=== PATIENT | male | born 1945 | race Caucasian/White ===

== ENCOUNTER → 2017-02-09 | Outpatient (CLI) | payer MEDICARE | END | disposition home or self-care (01) | LOC: CFH 07:34 | PROVIDERS: ATTEND Internal Medicine Cardiovascular Disease | DX: I08.3 Combined rheumatic disorders of mitral, aortic and tricuspid valves (principal); I51.7 Cardiomegaly; I72.8 Aneurysm of other specified arteries; Z95.0 Presence of cardiac pacemaker | CPT/HCPCS: 93306 ==

== ENCOUNTER → 2018-01-24 | Outpatient (CLI) | payer MEDICARE | END | disposition home or self-care (01) | LOC: CFH 09:28 | PROVIDERS: ATTEND Internal Medicine Cardiovascular Disease | DX: I35.8 Other nonrheumatic aortic valve disorders (principal); I25.2 Old myocardial infarction; I42.8 Other cardiomyopathies; Z87.891 Personal history of nicotine dependence | CPT/HCPCS: 93306 ==

== ENCOUNTER 2019-04-15 07:45 | Inpatient (IN) | payer MEDICARE ==
[~2019-04-15] VITALS: Ht 167.6 cm; Wt 89.4 kg
[2019-04-15] MEDS ORDERED: SODIUM CHLORIDE FLUSH 10ML SYR IVF ONE (08:00)
[2019-04-15 08:19] LABS: BASOPHILS # (AUTO) 0.05 x10^3/uL (0-0.1); BASOPHILS % (AUTO) 1 % (0-1); EOSINOPHILS # (AUTO) 0.18 x10^3/uL (0-0.4); EOSINOPHILS % (AUTO) 3 % (1-7); LYMPHOCYTES # (AUTO) 1.56 x10^3/uL (1-3.4); LYMPHOCYTES % (AUTO) 23 % (22-44); MD NO; MEAN CORPUSCULAR HEMOGLOBIN 29.8 pg (27.5-34.5); MEAN CORPUSCULAR HGB CONC 31.6 g/dL (33.2-36.2); MEAN CORPUSCULAR VOLUME 94.3 fL (81-97); MEAN PLATELET VOLUME 9.7 fL (7.4-10.4); MONOCYTES # (AUTO) 0.53 x10^3/uL (0.2-0.8); MONOCYTES % (AUTO) 8 % (2-9); NEUTROPHILS # (AUTO) 4.44 x10^3/uL (1.8-6.8); NEUTROPHILS % (AUTO) 66 % (42-75); PLATELET COUNT 190 x10^3/uL (130-400); RED BLOOD COUNT 5.02 x10^6/uL (4.38-5.82); RED CELL DISTRIBUTION WIDTH 14.2 % (9.4-14.8)
[2019-04-15 08:32] LABS: ALANINE AMINOTRANSFERASE 26 U/L (12-78); ALBUMIN 3.8 g/dL (3.4-5.0); ANION GAP 6 mmol/L (5-15); CHLORIDE 109 mmol/L (98-107); CREATININE 1.08 mg/dL (0.7-1.3)
[2019-04-15 08:37] LABS: ALKALINE PHOSPHATASE 87 U/L (45-117); BILIRUBIN,TOTAL 0.6 mg/dL (0.2-1.0); TOTAL PROTEIN 6.8 g/dL (6.4-8.2); TROPONIN I 0.023 ng/mL (0.000-0.045)
[2019-04-15] MEDS ORDERED: ENAL20TA PO (08:43)
[2019-04-15] MEDS ORDERED: ATOR-2 PO (08:43)
[2019-04-15] MEDS ORDERED: CYCL-259 PO (08:43)
[2019-04-15] MEDS ORDERED: ALPR-475 PO (08:43)
[2019-04-15] MEDS ORDERED: CENTRUM SILVER PO (08:43)
[2019-04-15] MEDS ORDERED: DOXA4TAB3 PO (08:43)
[2019-04-15] MEDS ORDERED: FURO-93 PO (08:43)
[2019-04-15] MEDS ORDERED: AMIODARONE 900 MG in DEXTROSE 5% 482 ML IV PRN (09:00)
[2019-04-15] MEDS ORDERED: AMIODARONE 150 MG in DEXTROSE 5% 100 ML IV ONE (09:00)
[2019-04-15] MEDS ORDERED: FILTER 0.22 MICRON IV PRN (09:00)
[2019-04-15 11:56] VITALS: BP 146/86
[2019-04-15] MEDS ORDERED: LABETALOL 5MG/ML, 20ML IVPush PRN (14:00)
[2019-04-15] MEDS ORDERED: POLYETHYLENE GLYCOL 17 GM PACKET PO PRN (14:00)
[2019-04-15] MEDS ORDERED: ONDANSETRON ODT 4 MG PO PRN (14:00)
[2019-04-15] MEDS ORDERED: ONDANSETRON 2MG/ML, 2ML IVPush PRN (14:00)
[2019-04-15 14:09] VITALS: BP 105/66
[2019-04-15 14:45] LABS: FREE T4 (FREE THYROXINE) 1.08 ng/dL (0.76-1.46)
[2019-04-15] MEDS ORDERED: AMIODARONE IN D5W 200 ML IV SCH (15:30)
[2019-04-15] MEDS ORDERED: FILTER 0.22 MICRON IV SCH (15:30)
[2019-04-15] MEDS ORDERED: AMIODARONE 360MG/200ML PREMIX IV PRN (15:30)
[2019-04-15] MEDS: CARVEDILOL 3.125 MG TABLET PO SCH (16:56)
[2019-04-15 18:28] VITALS: BP 120/75
[2019-04-15] MEDS ORDERED: ACETAMINOPHEN 325 MG TABLET ONE (19:22)
[2019-04-15] MEDS ORDERED: ACETAMINOPHEN 325 MG TABLET PO PRN (19:30)
[2019-04-15] MEDS: DOXAZOSIN 2MG TABLET PO SCH (19:58)
[2019-04-15] MEDS: CYCLOBENZAPRINE 10 MG TABLET PO SCH (19:58)
[2019-04-15] MEDS: ATORVASTATIN 40 MG TABLET PO SCH (19:58)
[2019-04-16] VITALS (7 sets, daily range): BP systolic 100–128; BP diastolic 64–82
[2019-04-16 04:42] LABS: BASOPHILS # (AUTO) 0.21 x10^3/uL (0-0.1); BASOPHILS % (AUTO) 2 % (0-1); EOSINOPHILS # (AUTO) 0.27 x10^3/uL (0-0.4); EOSINOPHILS % (AUTO) 3 % (1-7); LYMPHOCYTES # (AUTO) 2.87 x10^3/uL (1-3.4); LYMPHOCYTES % (AUTO) 31 % (22-44); MD NO; MEAN CORPUSCULAR HEMOGLOBIN 30.4 pg (27.5-34.5); MEAN CORPUSCULAR HGB CONC 32.1 g/dL (33.2-36.2); MEAN CORPUSCULAR VOLUME 94.8 fL (81-97); MEAN PLATELET VOLUME 9.9 fL (7.4-10.4); MONOCYTES # (AUTO) 0.77 x10^3/uL (0.2-0.8); MONOCYTES % (AUTO) 8 % (2-9); NEUTROPHILS # (AUTO) 5.09 x10^3/uL (1.8-6.8); NEUTROPHILS % (AUTO) 55 % (42-75); PLATELET COUNT 186 x10^3/uL (130-400); RED BLOOD COUNT 4.61 x10^6/uL (4.38-5.82); RED CELL DISTRIBUTION WIDTH 14.3 % (9.4-14.8)
[2019-04-16 04:50] LABS: ALANINE AMINOTRANSFERASE 22 U/L (12-78); ALBUMIN 3.5 g/dL (3.4-5.0); ANION GAP 7 mmol/L (5-15); CALCIUM 8.8 mg/dL (8.5-10.1); CHLORIDE 108 mmol/L (98-107); CREATININE 0.96 mg/dL (0.7-1.3)
[2019-04-16 05:01] LABS: ALKALINE PHOSPHATASE 77 U/L (45-117); BILIRUBIN,TOTAL 0.8 mg/dL (0.2-1.0); TOTAL PROTEIN 6.2 g/dL (6.4-8.2)
[2019-04-16] MEDS: CARVEDILOL 3.125 MG TABLET PO SCH ×2 (05:51→17:03)
[2019-04-16] MEDS ORDERED: POTASSIUM CHLORIDE 20 MEQ PACKET PO SCH (08:00)
[2019-04-16] MEDS ORDERED: POTASSIUM CHLORIDE 20 MEQ TAB.ER.PRT ONE (08:01)
[2019-04-16] MEDS: SENNA/DOCUSATE TABLET PO SCH (08:04)
[2019-04-16] MEDS: PANTOPRAZOLE 40 MG IV IVPush SCH (08:04)
[2019-04-16] MEDS: CYCLOBENZAPRINE 10 MG TABLET PO SCH ×3 (08:06→21:09)
[2019-04-16] MEDS: ENALAPRIL 20MG TABLET PO SCH (08:07)
[2019-04-16 08:17] LABS: TROPONIN I 0.048 ng/mL (0.000-0.045)
[2019-04-16] MEDS ORDERED: REGADENOSON 0.4 MG/5 ML SYRINGE ONE (08:53)
[2019-04-16] MEDS ORDERED: ENOXAPARIN 40 MG/0.4 ML SQ SCH (12:00)
[2019-04-16] MEDS: FUROSEMIDE 40 MG TABLET PO SCH (12:29)
[2019-04-16] MEDS: AMIODARONE 200 MG TABLET PO SCH ×2 (12:29→21:08)
[2019-04-16] MEDS ORDERED: CARVEDILOL 3.125 MG TABLET PO ONE (13:00)
[2019-04-16] MEDS: ATORVASTATIN 40 MG TABLET PO SCH (21:09)
[2019-04-16] MEDS: DOXAZOSIN 2MG TABLET PO SCH (21:09)
[2019-04-17 00:50] VITALS: BP 101/64
[2019-04-17 05:21] LABS: BASOPHILS # (AUTO) 0.05 x10^3/uL (0-0.1); BASOPHILS % (AUTO) 1 % (0-1); EOSINOPHILS # (AUTO) 0.21 x10^3/uL (0-0.4); EOSINOPHILS % (AUTO) 2 % (1-7); LYMPHOCYTES # (AUTO) 2.36 x10^3/uL (1-3.4); LYMPHOCYTES % (AUTO) 26 % (22-44); MD NO; MEAN CORPUSCULAR HEMOGLOBIN 30.5 pg (27.5-34.5); MEAN CORPUSCULAR HGB CONC 32.6 g/dL (33.2-36.2); MEAN CORPUSCULAR VOLUME 93.5 fL (81-97); MEAN PLATELET VOLUME 10.1 fL (7.4-10.4); MONOCYTES # (AUTO) 0.73 x10^3/uL (0.2-0.8); MONOCYTES % (AUTO) 8 % (2-9); NEUTROPHILS # (AUTO) 5.72 x10^3/uL (1.8-6.8); NEUTROPHILS % (AUTO) 63 % (42-75); PLATELET COUNT 189 x10^3/uL (130-400); RED BLOOD COUNT 4.77 x10^6/uL (4.38-5.82); RED CELL DISTRIBUTION WIDTH 14.4 % (9.4-14.8)
[2019-04-17 05:29] LABS: ALBUMIN 3.6 g/dL (3.4-5.0); ANION GAP 6 mmol/L (5-15); CHLORIDE 109 mmol/L (98-107)
[2019-04-17 05:33] LABS: ALANINE AMINOTRANSFERASE 23 U/L (12-78); ALKALINE PHOSPHATASE 79 U/L (45-117); BILIRUBIN,TOTAL 0.8 mg/dL (0.2-1.0); TOTAL PROTEIN 6.5 g/dL (6.4-8.2)
[2019-04-17] MEDS: CARVEDILOL 3.125 MG TABLET PO SCH (05:54)
[2019-04-17 07:20] VITALS: BP 122/78
[2019-04-17] MEDS ORDERED: POTASSIUM CHLORIDE 20 MEQ TAB.ER.PRT PO SCH (08:00)
[2019-04-17] MEDS: PANTOPRAZOLE 40 MG IV IVPush SCH (08:11)
[2019-04-17] MEDS: FUROSEMIDE 40 MG TABLET PO SCH (08:13)
[2019-04-17] MEDS: AMIODARONE 200 MG TABLET PO SCH (08:13)
[2019-04-17] MEDS: CYCLOBENZAPRINE 10 MG TABLET PO SCH (08:13)
[2019-04-17] MEDS: ENALAPRIL 20MG TABLET PO SCH (08:13)
[2019-04-17] MEDS: SENNA/DOCUSATE TABLET PO SCH (08:20)
[2019-04-17] MEDS ORDERED: AMIO200T42 PO (10:49)
[2019-04-17] MEDS ORDERED: CARV3.1212 PO (10:49)
== END 2019-04-17 12:30 | disposition home or self-care (01) | DRG 309 ==
LOC: ED 08:15 → EDIP 08:54 → 5SO 10:06 → DCLOUNGE 04-17 12:20
PROVIDERS: ADMIT Internal Medicine; ATTEND Internal Medicine
DX: I47.2 Ventricular tachycardia (principal); D68.69 Other thrombophilia; I50.42 Chronic combined systolic (congestive) and diastolic (congestive) heart failure; I48.0 Paroxysmal atrial fibrillation; E78.5 Hyperlipidemia, unspecified; G89.29 Other chronic pain; I11.0 Hypertensive heart disease with heart failure; I25.10 Atherosclerotic heart disease of native coronary artery without angina pectoris; I25.5 Ischemic cardiomyopathy; Z79.899 Other long term (current) drug therapy; Z87.891 Personal history of nicotine dependence; I25.2 Old myocardial infarction; Z95.5 Presence of coronary angioplasty implant and graft; Z95.810 Presence of automatic (implantable) cardiac defibrillator
CPT/HCPCS: 36415; 71045; 78452; 80053; 83735; 84100; 84439; 84443; 84484; 85025; 93005; 93017; 93306; G0378; J2785; A9502; C9113; C9898; J0282; J7060

== ENCOUNTER 2019-07-24 09:28 | Outpatient (CLI) | payer MEDICARE ==
[~2019-07-24 09:28] MED LIST: ALPR0.5T7 PO; AMIO200T42 PO; ATOR-2 PO; CARV3.1212 PO; CENTRUM SILVER PO; CYCL-259 PO; DOXA4TAB3 PO; ENAL20TA PO; FURO-93 PO
== END 2019-07-24 23:59 | disposition home or self-care (01) ==
LOC: CFH 09:28
PROVIDERS: ATTEND Internal Medicine Cardiovascular Disease
DX: I08.8 Other rheumatic multiple valve diseases (principal); E78.5 Hyperlipidemia, unspecified; I42.8 Other cardiomyopathies; I25.2 Old myocardial infarction; Z95.0 Presence of cardiac pacemaker
CPT/HCPCS: 93306

== ENCOUNTER → 2020-05-30 | Outpatient (CLI) | payer MEDICARE | END | disposition home or self-care (01) | LOC: CFH 10:06 | PROVIDERS: ATTEND Internal Medicine Cardiovascular Disease | DX: J98.4 Other disorders of lung (principal); I11.9 Hypertensive heart disease without heart failure; E78.2 Mixed hyperlipidemia; I42.8 Other cardiomyopathies; I47.2 Ventricular tachycardia; R42 Dizziness and giddiness; M43.8X4 Other specified deforming dorsopathies, thoracic region; Z95.810 Presence of automatic (implantable) cardiac defibrillator | CPT/HCPCS: 71046 ==

== ENCOUNTER → 2021-04-15 | Outpatient (CLI) | payer MEDICARE ==
[~2021-04-15] MED LIST changes: -CYCL-259 PO; +CYCL10TA2 PO; -ENAL20TA PO; +ENAL20TA9 PO
== END | disposition home or self-care (01) ==
LOC: CFH 08:41
PROVIDERS: ATTEND Internal Medicine Cardiovascular Disease
DX: I08.8 Other rheumatic multiple valve diseases (principal); I42.8 Other cardiomyopathies; R42 Dizziness and giddiness
CPT/HCPCS: 93306